=== PATIENT | male | born 1955 | race Caucasian/White ===

== ENCOUNTER 2018-09-29 14:37 | Emergency (ER) | payer MEDICAID ==
[2018-09-29] MEDS ORDERED: IBUPROFEN 600 MG TABLET PO ONE (15:11)
[2018-09-29] MEDS ORDERED: Diph,Pert(Acell),Tet Vac 0.5 ML SYR IM ONE (15:11)
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
== END 2018-09-29 16:20 | disposition home or self-care (01) ==
LOC: ER 14:37
DX: S01.01XA Laceration without foreign body of scalp, initial encounter (principal); R51 Headache; W20.8XXA Other cause of strike by thrown, projected or falling object, initial encounter; Y92.009 Unspecified place in unspecified non-institutional (private) residence as the place of occurrence of the external cause; F17.210 Nicotine dependence, cigarettes, uncomplicated
CPT/HCPCS: 12002; 90715; 96372; 99283; 99284

== ENCOUNTER 2018-10-09 08:22 | Emergency (ER) | payer MEDICAID ==
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
== END 2018-10-09 08:54 | disposition home or self-care (01) ==
LOC: ER 08:22
DX: Z48.02 Encounter for removal of sutures (principal)